=== PATIENT | female | born 1940 | race Caucasian/White ===

== ENCOUNTER 2019-10-28 12:33 | Outpatient (CLI) | payer MEDICARE ==
--- NOTE | 2019-10-28 12:47 | RAD ---
EXAM: Chest 2 views: HISTORY: Dyspnea COMPARISON: None. FINDINGS: There is a normal-sized cardiomediastinal silhouette. Atherosclerotic callus cages are seen in the a anatoly. There is no evidence of consolidation, mass, or pleural effusion. Degenerative changes are seen in the spine. IMPRESSION: No evidence of acute cardiopulmonary disease
== END 2019-10-28 12:34 | disposition home or self-care (01) ==
LOC: BICRAD 12:33
PROVIDERS: ATTEND Internal Medicine Critical Care Medicine
DX: R06.00 Dyspnea, unspecified (principal)
CPT/HCPCS: 71046